=== PATIENT | female | born 1945 | race Caucasian/White ===

== ENCOUNTER 2017-06-20 07:36 | Day surgery (SDC) | payer OTHER ==
[~2017-06-20] VITALS: Ht 157.5 cm; Wt 121.5 kg
[~2017-06-20 07:36] MED LIST: DAILY MULTIPLE1 EACH PO; DEPAKOTE ER500 MG PO; FLUOXETINE HCL20 MG PO; LO-DOSE ASPIRIN81 M2 PO; MECLIZINE HCL25 MG PO; NAPROXEN500 MG PO; NORTRIPTYLINE H10 MG PO; OMEPRAZOLE20 M2 PO; VESICARE10 MG PO
[2017-06-20 08:12] VITALS: BP 187/84
[2017-06-20 11:55] VITALS: BP 173/98
[2017-06-20 12:55] VITALS: BP 184/83
== END 2017-06-20 13:15 | disposition home or self-care (01) ==
LOC: SDC 07:36
PROVIDERS: Internal Medicine
DX: H35.341 Macular cyst, hole, or pseudohole, right eye (principal); H35.371 Puckering of macula, right eye; K21.9 Gastro-esophageal reflux disease without esophagitis; E66.01 Morbid (severe) obesity due to excess calories; Z68.42 Body mass index [BMI] 45.0-49.9, adult; E78.2 Mixed hyperlipidemia; I10 Essential (primary) hypertension; E88.81 Metabolic syndrome and other insulin resistance; Z79.82 Long term (current) use of aspirin; Z91.048 Other nonmedicinal substance allergy status
CPT/HCPCS: 82948; J0690; J3300